=== PATIENT | male | born 1970 | race African-American/Black ===

== ENCOUNTER 2017-09-21 16:07 | Emergency (ER) | payer OTHER ==
[~2017-09-21] VITALS: Ht 170.2 cm; Wt 61.0 kg
[2017-09-21] MEDS ORDERED: KETOROLAC 30MG/ML VIAL IV STA (16:22)
[2017-09-21] MEDS ORDERED: SODIUM CHLORIDE 0.9% 1,000 ML IV ONE (16:22)
[2017-09-21] MEDS ORDERED: ONDANSETRON HCL 4MG/2ML VIAL IV STA (16:22)
[2017-09-21 16:47] LABS: BASOPHILS % 0.4 % (0.0-2.0); EOSINOPHILS % 0.1 % (0.0-5.0); HEMOGLOBIN. 14.6 g/dL (14.0-18.0); LYMPHOCYTES % 5.4 % (20.0-50.0); MEAN CORPUSCULAR VOLUME 88.5 fL (80.0-94.0); MEAN PLATELET VOLUME 9.2 fl (7.4-10.4); NEUTROPHILS % 90.1 % (40.0-76.0); PLATELET 208 x1000/uL (130-400); RED BLOOD CELL COUNT 4.86 mill/uL (4.7-6.1); RED CELL DISTRIBUTION WIDTH 12.9 % (11.6-14.6)
[2017-09-21 16:54] LABS: CHLORIDE 104 mEq/L (98-107); INR 1.1; PROTHROMBIN TIME 11.3 sec (9.4-11.6)
[2017-09-21 19:15] LABS: CLARITY URINE CLOUDY (CLEAR); COLOR URINE YELLOW (YELLOW); KETONES URINE 1+ (NEGATIVE); LEUKOCYTE ESTERASE URINE NEGATIVE (NEGATIVE); NITRITE URINE NEGATIVE (NEGATIVE); OCCULT BLOOD URINE 2+ (NEGATIVE); PH URINE 7.5 (4.5-8.0); PROTEIN URINE TRACE (NEGATIVE); SPECIFIC GRAVITY URINE 1.014 (1.005-1.030); UROBILINOGEN URINE 0.2 E.U./dL (0.2-1.0)
[2017-09-21 20:24] VITALS: BP 148/59
== END 2017-09-21 20:32 | disposition home or self-care (01) ==
LOC: ER 16:07
DX: N13.2 Hydronephrosis with renal and ureteral calculous obstruction (principal); D72.829 Elevated white blood cell count, unspecified; I45.10 Unspecified right bundle-branch block
CPT/HCPCS: 36415; 74176; 80053; 81003; 85025; 85610; 93005; 96361; 96374; 96375; 99285; J1885; J2405; J7030